=== PATIENT | female | born 1975 | race Asian ===

== ENCOUNTER 2021-09-18 17:47 | Emergency (ER) | payer OTHER ==
[2021-09-18 18:00] VITALS: BP 144/88; PULSE 93; TEMP 98; BMI 28.3
[2021-09-18] MEDS ORDERED: TETANUS AND DIPHTHERIA TOXOID 0.5 ML DISP.SYRIN IM ONE (18:40)
[2021-09-18] MEDS ORDERED: DIPHTH,PERTUSS(ACELL),TET 0.5 ML DISP.SYRIN IM ONE (18:57)
[2021-09-18 19:41] LABS: BASO % 0.7 % (0-2.0); EOS % 2.5 % (0-4.5); HEMATOCRIT 38.9 % (32.4-45.2); HEMOGLOBIN 13.3 GM/dL (10.7-15.3); LYMPH % 35.1 % (8-40); MCH 28.3 pg (25.7-33.7); MCHC 34.3 g/dl (32.0-36.0); MEAN CELL VOLUME 82.7 fl (80-96); MEAN PLT VOLUME 8.1 fl (7.5-11.1); NEUT % 55.7 % (42.8-82.8); PLATELET COUNT 258 10^3/uL (134-434); RBC 4.71 M/mm3 (3.60-5.2); WHITE BLOOD COUNT 7.8 K/mm3 (4.0-10.0)
[2021-09-18 20:08] LABS: CALCIUM 8.9 mg/dL (8.5-10.1)
[2021-09-18 20:09] LABS: ALBUMIN 3.7 g/dl (3.4-5.0); BLOOD UREA NITROGEN 13.8 mg/dL (7-18); CO2 28 mmol/L (21-32); GAMMA GLUTAMYL TRANSPEPTIDASE 23 U/L (5-85); GLUCOSE,RANDOM 92 mg/dL (74-106)
[2021-09-18 20:11] LABS: CREATININE 0.8 mg/dL (0.55-1.3); SGPT/ALT 20 U/L (13-61); URIC ACID 5.6 mg/dL (2.6-7.2)
[2021-09-18 20:12] LABS: BILIRUBIN,TOTAL 0.4 mg/dL (0.2-1); CHOLESTEROL 215 mg/dL (50-200); PHOSPHOROUS 3.8 mg/dL (2.5-4.9); SGOT/AST 18 U/L (15-37); TOT PROT 7.5 g/dl (6.4-8.2); TRIGLYCERIDES 392 mg/dL (0-150)
[2021-09-18 20:13] LABS: ALK PHOS 65 U/L (45-117)
[2021-09-18 20:46] LABS: ANION GAP 7 MMOL/L (8-16); CHLORIDE 103 mmol/L (98-107); SODIUM 137 mmol/L (136-145)
[2021-09-18 21:08] LABS: HIV INTERPRETATION NEGATIVE (NEGATIVE)
[2021-09-18 21:10] LABS: LDH 189 U/L (84-246)
== END 2021-09-18 19:18 | disposition home or self-care (01) ==
LOC: JERFT 17:47 → JER 17:47 → JERFT 19:18
PROC: 3E0234Z Introduction of Serum, Toxoid and Vaccine into Muscle, Percutaneous Approach (ICD-10-PCS; principal; 2021-09-18)
DX: S61.234A Puncture wound without foreign body of right ring finger without damage to nail, initial encounter (principal); W46.1XXA Contact with contaminated hypodermic needle, initial encounter
CPT/HCPCS: 36415; 80053; 82465; 82977; 83615; 84100; 84478; 84550; 84702; 85025; 86704; 86803; 87340; 87389; 87517; 99284-25